=== PATIENT | male | born 1975 | race Caucasian/White ===

== ENCOUNTER 2017-11-15 14:33 | Emergency (ER) | payer OTHER ==
[2017-11-16] MEDS ORDERED: NEURAPTINE30 ML PO (03:00)
[2017-11-16] MEDS ORDERED: TRAMADOL HCL50 MG PO (03:01)
[2017-11-16] MEDS ORDERED: B-12500 MC1 SL (03:03)
[2017-11-16] MEDS ORDERED: DAILY VITAMIN1 EAC4 PO (03:06)
[2017-11-16] MEDS ORDERED: LISINOPRIL40 MG PO (03:06)
[2017-11-16] MEDS ORDERED: GLUCOPHAGE1000 MG PO (03:09)
[2017-11-16] MEDS ORDERED: GABAPENTIN800 MG PO (03:11)
[2017-11-16] MEDS ORDERED: TRAZODONE HCL50 MG PO (03:14)
[2017-11-16] MEDS ORDERED: NICODERM CQ1 EAC2 TD (03:19)
[2017-11-16] MEDS ORDERED: JANUMET XR 1001 EACH PO ×2 (16:39→16:44)
== END 2017-11-15 15:16 | disposition left against medical advice (07) ==
LOC: EME 14:33
DX: Z53.21 Procedure and treatment not carried out due to patient leaving prior to being seen by health care provider (principal)

== ENCOUNTER 2017-11-15 18:23 | Inpatient (IN) | payer OTHER ==
[~2017-11-15] VITALS: Ht 170.2 cm; Wt 111.6 kg
[2017-11-15 19:36] LABS: HEMOGLOBIN 14.2 G/DL (12.5-16.6); MCH 28.1 PG (29.0-34.0); MCHC 34.6 G/DL (30.0-36.0); MCV 81.2 FL (86-99); PLATELET COUNT 233 K/uL (156-360); RBC DIS.WIDTH-CV 12.5 % (11.8-14.6); RBC DIS.WIDTH-SD 36.7 % (39-53); RED BLOOD COUNT 5.05 M/uL (4.00-5.50); WHITE BLOOD COUNT 13.3 K/uL (4.1-10.2)
[2017-11-15 19:44] LABS: ALBUMIN 3.9 g/dL (3.2-4.8); CHLORIDE 98 mEq/L (99-109); SODIUM 134 mEq/L (136-147)
[2017-11-15 19:47] LABS: TOTAL PROTEIN 7.5 g/dL (6.4-8.3)
[2017-11-15 19:48] LABS: TOTAL BILIRUBIN 0.3 mg/dL (0.0-1.0)
[2017-11-15 19:49] LABS: SERUM ETHYL ALCOHOL < 10 mg/dL
[2017-11-15 19:50] LABS: ALKALINE PHOSPHATASE 135 IU/L (3-129); CREATININE 1.3 mg/dL (0.6-1.3); GFR ESTIMATE (CALCULATED) > 59 mL/min/ (58.99-99999)
[2017-11-15 19:51] LABS: UREA NITROGEN (BUN) 10 mg/dL (9-23)
[2017-11-15 19:52] LABS: AST (GOT) 18 IU/L (2-34)
[2017-11-15 19:53] LABS: ALT (GPT) 42 IU/L (3-49); GLUCOSE 480 mg/dL (70-99)
[2017-11-15 20:24] LABS: APPEARANCE CLEAR ((CLEAR)); BILIRUBIN NEGATIVE; BLOOD NEGATIVE; COLOR STRAW ((YELLOW)); GLUCOSE (STRIP) >=500; KETONES NEGATIVE; LEUKOCYTES NEGATIVE; NITRITE NEGATIVE; PROTEIN (STRIP) NEGATIVE; SPECIFIC GRAVITY 1.031 (1.000-1.030); UROBILINOGEN 0.2 MG/DL (0.2-1.0)
[2017-11-15 20:32] LABS: AMPHETAMINE NEGATIVE (500 ng/mL); BARBITURATES NEGATIVE (200 ng/mL); BENZODIAZEPINES NEGATIVE (150 ng/mL); BUPRENORPHINE NEGATIVE (10 ng/mL); COCAINE NEGATIVE (150 ng/mL); METHADONE NEGATIVE (200 ng/mL); METHAMPHETAMINE NEGATIVE (500 ng/mL); OPIATES (MORPHINE) NEGATIVE (100 ng/mL); OXYCODONE NEGATIVE (100 ng/mL); PHENCYCLIDINE NEGATIVE (25 ng/mL); PROPOXYPHENE NEGATIVE (300 ng/mL); THC CANNABINOIDS PRESUMPTIVE POSITIVE (50 ng/mL); TRICYCLIC ANTIDEPRESSANTS NEGATIVE (300 ng/mL)
[2017-11-16] MEDS ORDERED: NEURAPTINE30 ML PO (03:00)
[2017-11-16] MEDS ORDERED: TRAMADOL HCL50 MG PO (03:01)
[2017-11-16] MEDS ORDERED: B-12500 MC1 SL (03:03)
[2017-11-16] MEDS ORDERED: DAILY VITAMIN1 EAC4 PO (03:06)
[2017-11-16] MEDS ORDERED: LISINOPRIL40 MG PO (03:06)
[2017-11-16] MEDS ORDERED: GLUCOPHAGE1000 MG PO (03:09)
[2017-11-16] MEDS ORDERED: GABAPENTIN800 MG PO (03:11)
[2017-11-16] MEDS ORDERED: TRAZODONE HCL50 MG PO (03:14)
[2017-11-16] MEDS ORDERED: NICODERM CQ1 EAC2 TD (03:19)
[2017-11-16 07:59] VITALS: BP 117/56
[2017-11-16 14:26] LABS: Estimated Average Glucose 246 mg/dL (70-123); HEMOGLOBIN A1c (GLYCOHEMOGLOB) 10.2 % HGB (Below 5.7)
[2017-11-16 15:28] VITALS: BP 144/77
[2017-11-16] MEDS ORDERED: JANUMET XR 1001 EACH PO ×2 (16:39→16:44)
[2017-11-17 07:38] VITALS: BP 106/56
[2017-11-17 15:34] VITALS: BP 138/81
[2017-11-18 07:54] VITALS: BP 104/58
[2017-11-18 15:47] VITALS: BP 112/66
[2017-11-19 09:34] VITALS: BP 90/48
[2017-11-19 12:19] VITALS: BP 114/63
[2017-11-19 16:09] VITALS: BP 128/75
[2017-11-19 23:41] VITALS: BP 112/69
[2017-11-20 07:52] VITALS: BP 106/59
[2017-11-20 10:33] VITALS: BP 123/74
[2017-11-20 10:52] LABS: APPEARANCE CLEAR ((CLEAR)); BILIRUBIN NEGATIVE; BLOOD NEGATIVE; COLOR YELLOW ((YELLOW)); GLUCOSE (STRIP) >=500; KETONES 5; LEUKOCYTES NEGATIVE; NITRITE NEGATIVE; PROTEIN (STRIP) NEGATIVE; SPECIFIC GRAVITY 1.018 (1.000-1.030); UROBILINOGEN 0.2 MG/DL (0.2-1.0)
[2017-11-20 15:37] VITALS: BP 135/65
[2017-11-21 07:10] VITALS: BP 104/70
[2017-11-21] MEDS ORDERED: TRAZODONE HCL50 MG PO (09:10)
[2017-11-21] MEDS ORDERED: GABAPENTIN800 MG PO ×2 (09:10→09:14)
[2017-11-21] MEDS ORDERED: DIVALPROEX SOD500 M1 PO (09:10)
[2017-11-21] MEDS ORDERED: LISINOPRIL20 MG PO (09:10)
[2017-11-21] MEDS ORDERED: TRAMADOL HCL50 MG PO (11:49)
[2017-11-21] MEDS ORDERED: JANUMET XR 1001 EACH PO (11:49)
[2017-11-21 11:54] VITALS: BP 123/66
== END 2017-11-21 12:53 | disposition home or self-care (01) | DRG 882 ==
LOC: EME 18:23 → 1WEST 21:02 → EDOF 21:02 → 1WEST 21:02 → ENRESERV 22:28 → EDOF 11-16 01:25 → 1WEST 11-16 01:29
PROVIDERS: Emergency Medicine; Psychiatry & Neurology Psychiatry
DX: F43.25 Adjustment disorder with mixed disturbance of emotions and conduct (principal); Z68.41 Body mass index [BMI] 40.0-44.9, adult; R45.851 Suicidal ideations; E11.40 Type 2 diabetes mellitus with diabetic neuropathy, unspecified; E11.65 Type 2 diabetes mellitus with hyperglycemia; G89.29 Other chronic pain; F12.10 Cannabis abuse, uncomplicated; F17.210 Nicotine dependence, cigarettes, uncomplicated; F41.1 Generalized anxiety disorder; F60.2 Antisocial personality disorder; F63.9 Impulse disorder, unspecified; F90.9 Attention-deficit hyperactivity disorder, unspecified type; I10 Essential (primary) hypertension; R45.850 Homicidal ideations; E66.9 Obesity, unspecified; Z79.84 Long term (current) use of oral hypoglycemic drugs; Z81.8 Family history of other mental and behavioral disorders; Z81.3 Family history of other psychoactive substance abuse and dependence
CPT/HCPCS: 80053; 80164; 81003; 82948; 83036; 84999; 85027; 90686; 90839; 97150 GO; 97165 GO; 99281; 99285; G0480; J1815; J7030; Q0177